=== PATIENT | male | born 1980 | race Caucasian/White ===

== ENCOUNTER 2024-07-05 15:06 | Emergency (ER) | payer SELFPAY ==
[~2024-07-05] VITALS: Ht 172.7 cm; Wt 100.0 kg
[2024-07-05 15:21] VITALS: O2SAT 100
[2024-07-05 15:33] VITALS: BP 146/83; PULSE 67; RESP 17; TEMP 36.7; O2SAT 100
[2024-07-05] MEDS ORDERED: IBUP-2029 MT (19:24)
[2024-07-05] MEDS ORDERED: CEPH500T MT (19:25)
== END 2024-07-05 20:43 | disposition home or self-care (01) ==
LOC: ER 15:19
DX: L03.116 Cellulitis of left lower limb (principal); R03.0 Elevated blood-pressure reading, without diagnosis of hypertension
CPT/HCPCS: 73620; 93971; 99284